=== PATIENT | male | born 1995 | race Caucasian/White ===

== ENCOUNTER 2020-11-13 08:33 | Emergency (ER) | payer OTHER ==
[2020-11-13 09:52] LABS: Basophils % 0.3 % (0-1.3); Hematocrit 45.7 % (39.6-49.0); Lymphocytes % 6.6 % (15.3-44.8); MPV 9.6 fL (7.6-11.3); RBC Red Blood Cell Count 5.07 M/uL (4.33-5.43)
[2020-11-13 09:55] LABS: BUN Blood Urea Nitrogen 7 mg/dL (7-18); Bicarbonate 30 mmol/L (21-32); Glucose Level 106 mg/dL (74-106); Potassium 3.8 mmol/L (3.5-5.1); Sodium Level 139 mmol/L (136-145)
[2020-11-13] MEDS ORDERED: METHYLPREDNISOLONE 125 MG INJ ONE (10:01)
[2020-11-13] MEDS ORDERED: DIPHENHYDRAMINE 50 MG/ML VIAL ONE (10:02)
[2020-11-13] MEDS ORDERED: CLINDAMYCIN 600MG/D5W 600 MG/50 ML BAG IV ONE (10:02)
[2020-11-13] MEDS ORDERED: KETOROLAC 30 MG/ML INJ ONE (10:02)
--- NOTE | 2020-11-13 10:39 | RAD REPORT ---
EXAM DESCRIPTION: CT - Soft Tissue Neck W/Contr - 11/13/2020 10:16 am CLINICAL HISTORY: Facial pain;Swelling COMPARISON: No comparisons TECHNIQUE: During dynamic enhancement using 100 milliliters nonionic IV contrast, axial 5 millimeter thick images of the neck were obtained. All CT scans are performed using dose optimization technique as appropriate and may include automated exposure control or mA/KV adjustment according to patient size. FINDINGS: No globe or orbital content abnormality. Paranasal sinuses and mastoid air cells are clear . No fracture identified. There are no bone destructive changes identifiable. Multi tooth dental deca y is identifiable with no erosive or destructive bone component. Condyles of the mandible are normall y positioned. No abscess or drainable fluid collections seen in the soft tissues. There is some mild stranding and edema change in the fatty tissues superficial and deep to the platysma on the right. A few small reac tive lymph nodes are present. IMPRESSION: Small nonspecific lymph nodes are present with mild stranding and edema in the fat the r ight-side lateral and inferior the mandible. No abscess or drainable fluid collection in the soft tissues. No acute or destructive bone process se en.
--- NOTE | 2020-11-13 10:52 | ER ---
Nurse's Notes [facility] Name: Frank Lloyd Age: 25 yrs Sex: Male : 1995 Arrival Date: 11/13/2020 Time: 08:45 Bed 6 Private MD: Diagnosis: Cellulitis of face Presentation: 11/13 09:03 Chief complaint: Patient states: pt was seen by a dentist yesterday . put on iw antibiotics and T3, was seen at [place] last night for pain control, still having a lot of pain on right side , with mild facial swelling. Coronavirus screen: At this time, the client does not indicate any symptoms associated with coronavirus-19. Ebola Screen: Patient negative for fever greater than or equal to 101.5 degrees Fahrenheit, and additional compatible Ebola Virus Disease symptoms Patient denies exposure to infectious person. Patient denies travel to an Ebola-affected area in the 21 days before illness onset. No symptoms or risks identified at this time. Initial Sepsis Screen: Does the patient meet any 2 criteria? No. Patient's initial sepsis screen is negative. Does the patient have a suspected source of infection? No. Patient's initial sepsis screen is negative. Risk Assessment: Do you want to hurt yourself or someone else? Patient reports no desire to harm self or others. Onset of symptoms was November 13, 2020. 09:03 Method Of Arrival: Ambulatory iw 09:03 Acuity: ERLINDA 4 iw 09:26 Acuity: ERLINDA 3 iw Historical: - Allergies: 09:07 mild allergy to shellfish; iw - Home Meds: 09:07 None [Active]; iw - PMHx: 09:07 None; iw - PSHx: 09:07 None; iw - Immunization history:: Adult Immunizations not up to date. - Social history:: Smoking status: Patient denies any tobacco usage or history of. Screenin:51 Abuse screen: Denies threats or abuse. Denies injuries from another. Nutritional bp screening: No deficits noted. Tuberculosis screening: No symptoms or risk factors identified. Fall Risk None identified. Assessment: 10:03 Reassessment: Patient appears in no apparent distress at this time. No changes from tw2 previously documented assessment. Patient and/or family updated on plan of care and expected duration. Pain level reassessed. Patient is alert, oriented x 3, equal unlabored respirations, skin warm/dry/pink. 11:23 Reassessment: PT D/C HOME AMBULATORY WITH FAMILY, DX WITH DENTAL ABSCESS AND FACIAL bp CELLULITIS. EENT: Reports pain in right jaw. Vital Signs: 09:03 BP 136 / 86; Pulse 82; Resp 16 S; Temp 98.2; Pulse Ox 96% on R/A; Weight 99.79 kg; iw Height 5 ft. 11 in. (180.34 cm); Pain 8/10; 10:03 BP 127 / 86; Pulse 83; Resp 17; Pulse Ox 95% on R/A; tw2 11:25 BP 136 / 76; Pulse 75; Resp 16; Temp 98.5; Pulse Ox 96% ; bp 09:03 Body Mass Index 30.68 (99.79 kg, 180.34 cm) iw ED Course: 08:45 Patient arrived in ED. wm 09:00 Darnell Abreu, JUAN JOSE is Primary Nurse. bp 09:05 Azam Kelly PA is PHCP. jr8 09:05 Umesh Owens MD is Attending Physician. jr8 09:06 Triage completed. iw 09:07 Arm band placed on. iw 09:30 Initial lab(s) drawn, by me, sent to lab. Inserted saline lock: 20 gauge in right kj1 antecubital area, using aseptic technique. Blood collected. 09:38 Basic Metabolic Panel Sent. kj1 09:38 CBC with Diff Sent. kj1 09:51 Patient has correct armband on for positive identification. Call light in reach. Side bp rails up X2. 10:16 CT Soft Tissue Neck W/contr In Process Unspecified. EDMS 10:52 Yang France DDS is Referral Physician. jr8 11:25 No provider procedures requiring assistance completed. IV discontinued, intact, bp bleeding controlled, No redness/swelling at site. Pressure dressing applied. Administered Medications: 09:45 Drug: Clindamycin 600 mg Route: IVPB; Infused Over: 30 mins; Site: right antecubital; bp 09:45 Drug: TORadol - (ketorolac) 15 mg Route: IVP; Site: right antecubital; bp 11:29 Follow up: Response: No adverse reaction bp 09:45 Drug: SOLU-Medrol (methylPrednisoLONE) 125 mg Route: IVP; Site: right antecubital; bp 09:45 Drug: Benadryl (diphenhydrAMINE) 25 mg Route: IVP; Site: right antecubital; bp 11:28 Follow up: Response: No adverse reaction; Marked relief of symptoms bp Outcome: 10:52 Discharge ordered by MD. turk 11:24 Patient left the ED. iw Signatures: Dispatcher [employer] EDChantal Olguin RN RN iw Roszak, Josh, PA PA jr8 Wise, Tara, RN RN 2 Darnell Abreu RN RN bp Jackson, Kandis [facility] Idalmis Li
--- NOTE | 2020-11-13 10:53 | EDPHYS ---
Physician Documentation [facility] Name: Frank Lloyd Age: 25 yrs Sex: Male : 1995 Arrival Date: 11/13/2020 Time: 08:45 Bed 6 Private MD: ED Physician Umesh Owens HPI: 11/13 10:02 This 25 yrs old Male presents to ER via Ambulatory with complaints of jr8 Toothache, Mouth Swelling. 10:02 Onset: The symptoms/episode began/occurred gradually, 2 day(s) ago. Duration: The jr8 symptoms are continuous. Modifying factors: The symptoms are alleviated by nothing, the symptoms are aggravated by chewing, talking. Associated signs and symptoms: Pertinent positives: pain, swelling. Severity of symptoms: At their worst the symptoms were moderate, in the emergency department the symptoms are unchanged. The patient has not experienced similar symptoms in the past. The patient has been recently seen by a physician: with similar presenting complaints, was given a prescription for pain medications, was given a prescription for antibiotics. Was seen at [place] yesterday and started on Abx and pain medicine. Was given f/u for dentist which he will see today but came in to ED now for worsening of swelling over night . Historical: - Allergies: 09:07 mild allergy to shellfish; iw - Home Meds: :07 None [Active]; iw - PMHx: 09:07 None; iw - PSHx: 09:07 None; iw - Immunization history:: Adult Immunizations not up to date. - Social history:: Smoking status: Patient denies any tobacco usage or history of. ROS: 10:02 Eyes: Negative for injury, pain, redness, and discharge, Neck: Negative for injury, jr8 pain, and swelling, Cardiovascular: Negative for chest pain, palpitations, and edema, Respiratory: Negative for shortness of breath, cough, wheezing, and pleuritic chest pain, Abdomen/GI: Negative for abdominal pain, nausea, vomiting, diarrhea, and constipation, Back: Negative for injury and pain, MS/Extremity: Negative for injury and deformity, Skin: Negative for injury, rash, and discoloration, Neuro: Negative for headache, weakness, numbness, tingling, and seizure. 10:02 ENT: Positive for dental pain, Gum pain Exam: 10:02 Constitutional: This is a well developed, well nourished patient who is awake, alert, jr8 and in no acute distress. 10:02 Eyes: Pupils equal round and reactive to light, extra-ocular motions intact. Lids and lashes normal. Conjunctiva and sclera are non-icteric and not injected. Cornea within normal limits. Periorbital areas with no swelling, redness, or edema. Neck: Trachea midline, no thyromegaly or masses palpated, and no cervical lymphadenopathy. Supple, full range of motion without nuchal rigidity, or vertebral point tenderness. No Meningismus. Cardiovascular: Regular rate and rhythm with a normal S1 and S2. No gallops, murmurs, or rubs. Normal PMI, no JVD. No pulse deficits. Respiratory: Lungs have equal breath sounds bilaterally, clear to auscultation and percussion. No rales, rhonchi or wheezes noted. No increased work of breathing, no retractions or nasal flaring. Skin: Warm, dry with normal turgor. Normal color with no rashes, no lesions, and no evidence of cellulitis. MS/ Extremity: Pulses equal, no cyanosis. Neurovascular intact. Full, normal range of motion. Neuro: Awake and alert, GCS 15, oriented to person, place, time, and situation. Cranial nerves II-XII grossly intact. Motor strength 5/5 in all extremities. Sensory grossly intact. Cerebellar exam normal. Normal gait. 10:02 Head/face: Noted is swelling, that is moderate, of the right jaw, tenderness, that is moderate, of the right jaw. 10:02 ENT: Mouth: Lips: moist, Oral mucosa: pink and intact, moist, Gums: pink, swollen, on the lower right first molar and lower right second molar, abscess, is not appreciated, Posterior pharynx: Airway: no evidence of obstruction, patent, Tonsils: are normal in appearance, Uvula: midline, non-edematous, no erythema, swelling, is not appreciated, erythema, is not appreciated, Dental exam: dental caries, that is mild, specifically in the lower right first molar (#30) and lower right second molar (#31), pain, that is moderate, specifically in the lower right first molar (#30) and lower right second molar (#31), Voice: is normal. Vital Signs: 09:03 BP 136 / 86; Pulse 82; Resp 16 S; Temp 98.2; Pulse Ox 96% on R/A; Weight 99.79 kg; iw Height 5 ft. 11 in. (180.34 cm); Pain 8/10; 10:03 BP 127 / 86; Pulse 83; Resp 17; Pulse Ox 95% on R/A; tw2 11:25 BP 136 / 76; Pulse 75; Resp 16; Temp 98.5; Pulse Ox 96% ; bp 09:03 Body Mass Index 30.68 (99.79 kg, 180.34 cm) iw MDM: 09:05 Patient medically screened. jr8 10:48 Differential diagnosis: dental caries, gingivitis, dental abscess, cellulitis. Data jr8 reviewed: vital signs, nurses notes, lab test result(s), radiologic studies, CT scan. Data interpreted: Pulse oximetry: on room air is 95 %. Interpretation: normal. Counseling: I had a detailed discussion with the patient and/or guardian regarding: the historical points, exam findings, and any diagnostic results supporting the discharge/admit diagnosis, lab results, radiology results, the need for outpatient follow up, a dentist, to return to the emergency department if symptoms worsen or persist or if there are any questions or concerns that arise at home. Response to treatment: the patient's symptoms have mildly improved after treatment. ED course: CT without abscess or phlegmon. No airway compromise. Patient able to breath without problems. Patient able to swallow without problems but has mild pain. No significant external cellulitis noted. At this time will add second Abx. Patient has f/u with dentist today at 2:30pm. Explained to them that if the swelling gets worse or he has difficulty in the mechanics of swallowing or breathing, that he need to come back immediately for further evaluation. Patient had significant other understands and are good with plan . 11/13 09:23 Order name: CBC with Diff; Complete Time: :58 11/13 09:23 Order name: Basic Metabolic Panel; Complete Time: 58 8 11/13 09:25 Order name: CT Soft Tissue Neck W/contr; Complete Time: 10:39 8 11/13 09:23 Order name: IV; Complete Time: 09:38 Administered Medications: 09:45 Drug: Clindamycin 600 mg Route: IVPB; Infused Over: 30 mins; Site: right antecubital; bp 09:45 Drug: TORadol - (ketorolac) 15 mg Route: IVP; Site: right antecubital; bp 11:29 Follow up: Response: No adverse reaction bp 09:45 Drug: SOLU-Medrol (methylPrednisoLONE) 125 mg Route: IVP; Site: right antecubital; bp 09:45 Drug: Benadryl (diphenhydrAMINE) 25 mg Route: IVP; Site: right antecubital; bp 11:28 Follow up: Response: No adverse reaction; Marked relief of symptoms bp Disposition: 11/14 07:13 Co-signature as Attending Physician, Umesh Owens MD I agree with the assessment and kdr plan of care. Disposition: 11/13/20 10:52 Discharged to Home. Impression: Cellulitis of face. - Condition is Stable. - Discharge Instructions: Cellulitis, Adult, Dental Abscess. - Prescriptions for Clindamycin HCl 300 mg Oral Capsule - take 1 capsule by ORAL route every 6 hours for 10 days; 40 capsule. - Medication Reconciliation Form, Thank You Letter, Antibiotic Education, Prescription Opioid Use, Work release form form. - Follow up: Yang France DDS; When: Today; Reason: Recheck today's complaints, Continuance of care, Re-evaluation by your physician. - Problem is new. - Symptoms have improved. - Notes: continue amoxicillin as prescribed Signatures: Dispatcher [employer] EDOK Umesh Owens MD MD [facility] Chantal Raymond RN RN iw Azam Kelly PA PA jr8 Darnell Abreu RN RN bp Corrections: (The following items were deleted from the chart) 11/13 11:24 10:52 11/13/2020 10:52 Discharged to Home. Impression: Cellulitis of face. Condition is iw Stable. Forms are Work release form, Medication Reconciliation Form, Thank You Letter, Antibiotic Education, Prescription Opioid Use. Follow up: Yang France; When: Today; Reason: Recheck today's complaints, Continuance of care, Re-evaluation by your physician. Problem is new. Symptoms have improved. jr8
[2020-11-13 11:33] VITALS: TEMP 98.2
[2020-11-13 11:35] VITALS: BP 127/86; O2SAT 95
== END 2020-11-13 11:24 | disposition home or self-care (01) ==
LOC: ER 08:33
DX: L03.211 Cellulitis of face (principal); Z91.013 Allergy to seafood
CPT/HCPCS: 85025; 80048; 36415; 70491; Q9967; J1200; J2930